=== PATIENT | male | born 1980 | race Caucasian/White ===

== ENCOUNTER 2021-02-13 11:46 | Emergency (ER) | payer OTHER ==
[~2021-02-13] VITALS: Ht 180.3 cm; Wt 100.7 kg
[2021-02-13] MEDS ORDERED: IBUP400 PO (14:26)
== END 2021-02-13 14:35 | disposition home or self-care (01) ==
LOC: ER 11:46
DX: S80.12XA Contusion of left lower leg, initial encounter (principal); W17.89XA Other fall from one level to another, initial encounter
CPT/HCPCS: 99283